=== PATIENT | female | born 1970 | race Caucasian/White ===

== ENCOUNTER → 2019-11-17 | Outpatient (CLI) | payer MEDICARE | LOC: ZCOL.LAB 16:03 | DX: Z20.828 Contact with and (suspected) exposure to other viral communicable diseases (principal) ==

== ENCOUNTER → 2020-01-23 | Outpatient (CLI) | payer OTHER | LOC: COL.RAD 10:57 | DX: K65.4 Sclerosing mesenteritis (principal); Z90.81 Acquired absence of spleen | CPT/HCPCS: Q9967 ==

== ENCOUNTER → 2020-03-17 | Outpatient (CLI) | payer OTHER | LOC: MC.RAD 03-04 10:45 | DX: Z12.31 Encounter for screening mammogram for malignant neoplasm of breast (principal); Z98.82 Breast implant status ==